=== PATIENT | male | born 1980 | race Caucasian/White ===

== ENCOUNTER 2017-08-29 19:06 | Inpatient (IN) | payer BC, OTHER ==
[~2017-08-29] VITALS: Ht 190.5 cm; Wt 81.6 kg
[2017-08-29] MEDS ORDERED: ACETAMINOPHEN 325 MG TABLET PO PRN (19:45)
[2017-08-29] MEDS ORDERED: LORAZEPAM 2 MG/1 ML VIAL IM PRN (19:45)
[2017-08-29] MEDS ORDERED: MAG HYDROX/AL HYDROX/SIMETH 30 ML LIQUID UDC PO PRN (19:45)
[2017-08-29] MEDS ORDERED: ONDANSETRON ODT 4 MG TAB.RAPDIS SL PRN (19:45)
[2017-08-29] MEDS ORDERED: IBUPROFEN 400 MG TABLET PO PRN (19:45)
[2017-08-29] MEDS ORDERED: LORAZEPAM 1 MG TABLET PO PRN ×2 (19:45)
[2017-08-29] MEDS ORDERED: ONDANSETRON 4 MG/2 ML VIAL IM PRN (19:45)
[2017-08-29] MEDS ORDERED: DICYCLOMINE HCL 20 MG TABLET PO PRN (19:45)
[2017-08-29] MEDS ORDERED: MIRALAX 17 GM POWD.PACK PO PRN (19:45)
[2017-08-29] MEDS ORDERED: MAGNESIUM HYDROXIDE 30 ML LIQUID UDC PO PRN (19:45)
[2017-08-29] MEDS ORDERED: LOPERAMIDE HCL 2 MG CAPSULE PO PRN ×2 (19:45)
[2017-08-29 20:23] LABS: ETHANOL < 3 MG/DL (0-0)
[2017-08-29 20:28] LABS: *AMPHETAMINE, URINE POSITIVE (NEGATIVE); *BARBITURATE, URINE NEGATIVE (NEGATIVE); *CANNABINOID, URINE NEGATIVE (NEGATIVE); *COCCAINE, URINE NEGATIVE (NEGATIVE); *OPIATE, URINE NEGATIVE (NEGATIVE); *PHENCYCLIDINE SCREEN,URINE NEGATIVE (NEGATIVE)
[2017-08-29 20:30] LABS: ALANINE AMINOTRANSFERASE 27 U/L (16-63); ALKALINE PHOSPHATASE 57 U/L (50-136); ASPARTATE AMINOTRANSFERASE 15 U/L (15-37); BASOPHILS # (AUTO) 0.1 K/uL (0.0-8.0); BASOPHILS % (AUTO) 0.9 % (0.0-2.0); BILIRUBIN,TOTAL 0.4 mg/dL (0.2-1.0); CARBON DIOXIDE 28 mmol/L (21-32); CHLORIDE 105 mmol/L (98-107); CREATININE 1.1 mg/dL (0.6-1.3); EOSINOPHILS # (AUTO) 0.1 K/uL (0.0-0.7); EOSINOPHILS % (AUTO) 1.9 % (0.0-7.0); GLUCOSE 85 mg/dL (74-106); HEMATOCRIT 47.3 % (36.7-47.1); HEMOGLOBIN 16.6 g/dL (12.5-16.3); LYMPHOCYTES # (AUTO) 2.6 K/uL (20.0-40.0); LYMPHOCYTES % (AUTO) 39.7 % (20.5-51.5); MAGNESIUM 2.2 mg/dL (1.8-2.4); MEAN CORPUSCULAR HEMOGLOBIN 31.1 uug (23.8-33.4); MEAN CORPUSCULAR HGB CONC 35 g/dL (32.5-36.3); MEAN CORPUSCULAR VOLUME 88.3 fL (73.0-96.2); MONOCYTES # (AUTO) 0.5 K/uL (2.0-10.0); MONOCYTES % (AUTO) 8.3 % (0.0-11.0); NEUTROPHILS # (AUTO) 3.2 K/uL (1.8-8.9); NEUTROPHILS % (AUTO) 49.2 % (38.5-71.5); PLATELET COUNT (AUTO) 302 K/uL (152-348); POTASSIUM 3.8 mmol/L (3.5-5.1); RED BLOOD CELL COUNT(AUTO) 5.36 MIL/uL (4.06-5.63); TOTAL PROTEIN, SERUM 7.9 g/dL (6.4-8.2); UREA NITROGEN, BLOOD 22 mg/dL (7-18); WHITE BLOOD COUNT (AUTO) 6.5 K/uL (3.6-10.2)
[2017-08-29] MEDS ORDERED: LORAZEPAM 1 MG TABLET PO SCH (21:00)
[2017-08-29 21:45] VITALS: BP 141/88
[2017-08-30] VITALS: BP 118/68
[2017-08-30] MEDS ORDERED: EMTR1TAB6 PO (02:59)
[2017-08-30] MEDS ORDERED: ASPI-1165 PO (02:59)
[2017-08-30 08:00] VITALS: BP 97/61
[2017-08-30] MEDS: GABAPENTIN 300 MG CAPSULE PO SCH ×2 (08:20→20:18)
[2017-08-30] MEDS ORDERED: TUBERCULIN,PURIF.PROT.DERIV. 5 TU/0.1 ML TEST ID ONE (09:00)
[2017-08-30 12:00] VITALS: BP 108/53
[2017-08-30] MEDS: TRUVADA PO SCH (14:01)
[2017-08-30] MEDS ORDERED: LORAZEPAM 1 MG TABLET PO SCH ×2 (15:00→21:00)
[2017-08-30] MEDS ORDERED: HYDROXYZINE PAMOATE 25 MG CAPSULE PO PRN (15:00)
[2017-08-30 16:00] VITALS: BP 101/60
[2017-08-30 20:00] VITALS: BP 102/72
[2017-08-31] VITALS (7 sets, daily range): BP systolic 125–137; BP diastolic 73–98
[2017-08-31 08:06] LABS: HEPATITIS B SURFACE AG Negative (Negative)
[2017-08-31] MEDS: TRUVADA PO SCH (08:43)
[2017-08-31] MEDS: GABAPENTIN 300 MG CAPSULE PO SCH ×2 (08:43→20:06)
[2017-08-31] MEDS ORDERED: LORAZEPAM 1 MG TABLET PO SCH ×2 (09:00→21:00)
[2017-08-31] MEDS ORDERED: CLON0.1T14 PO (12:03)
[2017-08-31] MEDS ORDERED: DIPH50CA37 PO (12:03)
[2017-08-31] MEDS ORDERED: GABA-534 PO (12:03)
[2017-08-31] MEDS ORDERED: HYDR-3895 PO (12:03)
[2017-08-31] MEDS: diphenhydrAMINE 50 MG CAPSULE PO PRN (20:06)
[2017-08-31] MEDS: CLONIDINE HCL 0.1 MG TABLET PO PRN (20:06)
[2017-09-01] VITALS (7 sets, daily range): BP systolic 119–156; BP diastolic 75–91
[2017-09-01] MEDS: GABAPENTIN 300 MG CAPSULE PO SCH ×2 (08:31→20:44)
[2017-09-01] MEDS: TRUVADA PO SCH (08:31)
[2017-09-01] MEDS ORDERED: LORAZEPAM 1 MG TABLET PO SCH (09:00)
[2017-09-01] MEDS: CLONIDINE HCL 0.1 MG TABLET PO PRN (20:44)
[2017-09-01] MEDS: diphenhydrAMINE 50 MG CAPSULE PO PRN (20:44)
[2017-09-02] VITALS: BP 132/76
[2017-09-02] MEDS ORDERED: diphenhydrAMINE 50 MG CAPSULE PO ONE
[2017-09-02 08:06] VITALS: BP 136/82
[2017-09-02] MEDS: GABAPENTIN 300 MG CAPSULE PO SCH (08:22)
[2017-09-02] MEDS: TRUVADA PO SCH (08:22)
== END 2017-09-02 09:33 | disposition other institution (70) | DRG 895 ==
LOC: SRC 19:06
PROVIDERS: ADMIT Internal Medicine; ATTEND Internal Medicine
PROC: HZ2ZZZZ Detoxification Services for Substance Abuse Treatment (ICD-10-PCS; principal; 2017-08-29)
PROC: HZ31ZZZ Individual Counseling for Substance Abuse Treatment, Behavioral (ICD-10-PCS; 2017-08-31)
PROC: HZ41ZZZ Group Counseling for Substance Abuse Treatment, Behavioral (ICD-10-PCS; 2017-08-31)
DX: F15.23 Other stimulant dependence with withdrawal (principal); I15.9 Secondary hypertension, unspecified; E86.0 Dehydration; F13.239 Sedative, hypnotic or anxiolytic dependence with withdrawal, unspecified; F41.9 Anxiety disorder, unspecified; Z81.1 Family history of alcohol abuse and dependence; Z81.8 Family history of other mental and behavioral disorders; Z91.89 Other specified personal risk factors, not elsewhere classified; Z72.52 High risk homosexual behavior
CPT/HCPCS: 36415; 70030-TC; 80307; 80324; 80345; 83735; 85025; 86580; 86592; 86705; 86803; 87340; 87806; G0480; Q0163

== ENCOUNTER 2017-12-24 16:33 | Inpatient (IN) | payer BC, OTHER ==
[~2017-12-24] VITALS: Ht 190.5 cm; Wt 86.2 kg
[~2017-12-24 16:33] MED LIST: ASPI-1165 PO; CLON0.1T14 PO; DIPH50CA37 PO; EMTR1TAB6 PO; GABA-534 PO; HYDR-3895 PO
--- NOTE | 2017-12-24 17:00 | NUR ---
Pre-admission assessment Pt 37 y/o male admitted for medically supervised withdrawal of meth. Pt reports NKA and Full Code. Pt has history of withdrawal induced seizures (2006 and other dates unknown), withdrawal induced delirium (2006), and accidental intoxication induced overdoses X 3 in his early 20s. Pt denies suicidal ideations and suicidal attempts. He has never been admitted involuntary to a psychiatric facility. Vitals: 134/82, HR 76, Resp 18, T- 98.2, O2 sat 97% on room air. Height 63, weight 190# A&OX4, respirations even and unlabored. Denies c/o pain, c/o nerve agitation over his body. Pt presents unshaven, restless, twitching, avoids eye contact, pressured speech, c/o thirst, anxious and jumpy. Pt has euphoric mood. Pt cooperative and friendly. Pt reports feeling high ant not experiencing withdrawal symptoms. Past meth withdrawal symptoms include jumpy, anxious, hunger, tired, sleeping a lot and thirsty.
[2017-12-24 17:24] VITALS: BP 134/82
--- NOTE | 2017-12-24 17:24 | NUR ---
Admission Note Pt 37 y/o male admitted for medically supervised withdrawal of meth. Pt reports NKA and Full Code. Pt has history of withdrawal induced seizures (2006 and other dates unknown), withdrawal induced delirium (2006), and accidental intoxication induced overdoses X 3 in his early 20s. Pt denies suicidal ideations and suicidal attempts. He has never been admitted involuntary to a psychiatric facility. Pt has been using Meth $40 worth over 3 days since March 2017. Pt snorts and smokes meth. He was last sober one week ago. Pt last used meth today 12/24/17 at 0200. His longest time sober was 9 years. He started using meth at 12-13 years old. He was last admitted for detox in August 2017, here at [facility]. In the past Pt has used Xanax, ketamine, and GHB. Pt denies tobacco use. Vitals: 134/82, HR 76, Resp 18, T- 98.2, O2 sat 97% on room air. Height 63, weight 190#. Skin intact. A&OX4, respirations even and unlabored. Denies c/o pain, c/o nerve agitation over his body. Pt presents unshaven, restless, twitching, avoids eye contact, pressured speech, c/o thirst, anxious and jumpy. Pt has euphoric mood. Pt cooperative and friendly. Pt reports feeling high ant not experiencing withdrawal symptoms. Past meth withdrawal symptoms include jumpy, anxious, hunger, tired, sleeping a lot and thirsty. Pt reports past medical history of anxiety. Daily medications include Truvada. Pt denies history of HIV, HEP C. Pt states he is seeking treatment today because I need to quit using. Pt states I think I use because of PTSD family issues. He wants to get sober to be present with his partner and in life. Pt thinks a trigger is seeing his biological father. The consequences of continueusing meth are his partner will leave him. His partner gave him an ultimatum. Pt feels he can stay sober this time because he has better knowledge of triggers and how to cope. His meth use has impaired work productivity and negatively impacting his physical and mental health. Educated patient about plan of care including detox regimen, group therapy, individual therapy, and discharge planning. Encouraged Pt to be open and honest, verbalize support for Pt in his recovery.
[2017-12-24] MEDS ORDERED: ACETAMINOPHEN 325 MG TABLET PO PRN (17:45)
[2017-12-24] MEDS ORDERED: MIRALAX 17 GM POWD.PACK PO PRN (17:45)
[2017-12-24] MEDS ORDERED: IBUPROFEN 600 MG TABLET PO PRN (17:45)
[2017-12-24] MEDS ORDERED: ONDANSETRON ODT 4 MG TAB.RAPDIS SL PRN (17:45)
[2017-12-24] MEDS ORDERED: ONDANSETRON 4 MG/2 ML VIAL IM PRN (17:45)
[2017-12-24] MEDS ORDERED: LOPERAMIDE HCL 2 MG CAPSULE PO PRN ×2 (17:45)
[2017-12-24] MEDS ORDERED: THIAMINE HCL 200 MG/2 ML VIAL IM ONE (17:45)
[2017-12-24] MEDS ORDERED: MAGNESIUM HYDROXIDE 30 ML LIQUID UDC PO PRN (17:45)
[2017-12-24] MEDS ORDERED: MAG HYDROX/AL HYDROX/SIMETH 30 ML LIQUID UDC PO PRN (17:45)
[2017-12-24] MEDS ORDERED: diphenhydrAMINE 50 MG CAPSULE PO PRN (17:45)
[2017-12-24 18:05] LABS: *AMPHETAMINE, URINE POSITIVE (NEGATIVE); *BARBITURATE, URINE NEGATIVE (NEGATIVE); *CANNABINOID, URINE NEGATIVE (NEGATIVE); *COCCAINE, URINE NEGATIVE (NEGATIVE); *OPIATE, URINE NEGATIVE (NEGATIVE); *PHENCYCLIDINE SCREEN,URINE NEGATIVE (NEGATIVE)
[2017-12-24 18:31] LABS: BASOPHILS # (AUTO) 0.1 K/uL (0.0-8.0); BASOPHILS % (AUTO) 1.1 % (0.0-2.0); EOSINOPHILS # (AUTO) 0.2 K/uL (0.0-0.7); EOSINOPHILS % (AUTO) 2.7 % (0.0-7.0); HEMATOCRIT 43.8 % (36.7-47.1); LYMPHOCYTES # (AUTO) 2.1 K/uL (20.0-40.0); LYMPHOCYTES % (AUTO) 35.6 % (20.5-51.5); MEAN CORPUSCULAR HEMOGLOBIN 30.4 uug (23.8-33.4); MEAN CORPUSCULAR HGB CONC 34 g/dL (32.5-36.3); MEAN CORPUSCULAR VOLUME 88.6 fL (73.0-96.2); MONOCYTES # (AUTO) 0.5 K/uL (2.0-10.0); MONOCYTES % (AUTO) 9.4 % (0.0-11.0); NEUTROPHILS % (AUTO) 51.2 % (38.5-71.5); PLATELET COUNT (AUTO) 264 K/uL (152-348); RED BLOOD CELL COUNT(AUTO) 4.94 MIL/uL (4.06-5.63); WHITE BLOOD COUNT (AUTO) 5.8 K/uL (3.6-10.2)
--- NOTE | 2017-12-24 18:38 | NUR ---
End of Shift Pt A&O X4, resp even and unlabored. Pt ate 100% dinner. Cooperative and friendly. No changes since admission note. CIWA 9. Per MD order CIWA Q4 hours for 24 hours. Pt reports NKA. FULL CODE. All safety precautions in place. Pt on fall and seizure precautions. Call light within reach. Bed lowest lock position. Will continue to monitor for withdrawal symptoms. Will endorse to PM shift.
[2017-12-24 18:51] LABS: ALANINE AMINOTRANSFERASE 41 U/L (16-63); ALKALINE PHOSPHATASE 49 U/L (50-136); ASPARTATE AMINOTRANSFERASE 29 U/L (15-37); BILIRUBIN,TOTAL 0.4 mg/dL (0.2-1.0); CARBON DIOXIDE 22 mmol/L (21-32); CHLORIDE 106 mmol/L (98-107); CREATININE 0.9 mg/dL (0.6-1.3); GLUCOSE 111 mg/dL (74-106); MAGNESIUM 2.3 mg/dL (1.8-2.4); POTASSIUM 3.7 mmol/L (3.5-5.1); TOTAL PROTEIN, SERUM 6.7 g/dL (6.4-8.2); UREA NITROGEN, BLOOD 19 mg/dL (7-18)
[2017-12-24 18:59] LABS: ETHANOL < 3 MG/DL (0-0)
[2017-12-24 20:00] VITALS: BP 126/77
--- NOTE | 2017-12-24 20:00 | NUR ---
Start of Shift Note Received a 37 y/o male px, admitted for medically supervised withdrawal from Methamphetamine. Px is on PRN medications. Last CIWA reported by AM shift nurse was 9. During the shift at 1999, px is awake on bed in left side lying position. Px appears unshaven, and anxious. Px stated My anxiety is low. I dont have any aches or pains. No complaints made at the moment. Px was told to use the call light if he needs anything. Bed on lowest position, side rails up 2x, and call light within reach. We'll continue to monitor.
--- NOTE | 2017-12-24 20:00 | NUR ---
DEXTERWA 5 Px stated that his anxiety is minimal. hand tremors not observed. No agitation observed. No complaints made.
[2017-12-25] VITALS: BP 121/74
--- NOTE | 2017-12-25 | NUR ---
CIWA deferred CIWA deferred due to the px is asleep, to assess if the px is awake per doctor's order. We'll continue to monitor.
[2017-12-25 04:00] VITALS: BP 123/76
--- NOTE | 2017-12-25 04:00 | NUR ---
CIWA deferred CIWA deferred due to the px is asleep, to assess if the px is awake per doctor's order. We'll continue to monitor.
--- NOTE | 2017-12-25 07:05 | NUR ---
End of Shift Note During the shift, px slept most of the time. No complaints made. No PRN medications given. Px oral intake is 500 ml, voided 1x, with No BM. Px slept for 10 hours. At 0630, px is asleep on bed in right side lying position. Last CIWA 5. Bed on lowest position, side rails up 2x, and call light within reach. Well continue to monitor. Px endorsed to AM shift nurse.
--- NOTE | 2017-12-25 07:30 | NUR ---
START OF SHIFT NOTE Received report from night nurse 37 year old male admitted for ETOH withdrawal and patient currently not on any taper but PRN'S is available for increased s/s of withdrawal. Per endorsement patient did not receive any PRN medications, last CIWA 5, slept for 10 hours. Received patient alert awake oriented x4 denies any pain. Breathing normal no SOB noted. Skin intact warm and dry to touch. All safety measures in place,call light within reach. Will continues to monitor. Addendum: 12/26/17 at 0800 by JUAN PETERSON [facility]- Patient admitted for METH withdrawal.
[2017-12-25 08:00] VITALS: BP 129/84
--- NOTE | 2017-12-25 08:00 | NUR ---
CIWA ASSESSMENT Patient is alert oriented x4, labile facial expressions and continues to exhibit s/s of withdrawal such as anxiety, agitation, restless, skin is smooth, Sweats, CIWA score -4. Will cont to monitor.
[2017-12-25] MEDS ORDERED: TUBERCULIN,PURIF.PROT.DERIV. 5 TU/0.1 ML TEST ID ONE (09:00)
[2017-12-25] MEDS: MULTIVITAMINS,THERAPEUTIC TABLET PO SCH (09:01)
[2017-12-25] MEDS: FOLIC ACID 1 MG TABLET PO SCH (09:01)
[2017-12-25] MEDS: THIAMINE HCL 100 MG TABLET PO SCH (09:01)
[2017-12-25 12:00] VITALS: BP 103/79
--- NOTE | 2017-12-25 12:00 | NUR ---
CIWA ASSESSMENT Patient is alert oriented, still sounded sleepy, sad facial expression, anhedonia, and continues to exhibit s/s of withdrawal such as anxiety, agitation, restless, skin is smooth,sweats. CIWA score -5. Will cont to monitor.
[2017-12-25] MEDS ORDERED: EMTRICITABINE/TENOFOVIR TABLET PO SCH (13:15)
[2017-12-25] MEDS ORDERED: HYDROXYZINE PAMOATE 25 MG CAPSULE PO PRN (13:15)
[2017-12-25] MEDS ORDERED: diphenhydrAMINE 50 MG CAPSULE PO PRN (13:15)
[2017-12-25 16:00] VITALS: BP 133/63
--- NOTE | 2017-12-25 16:00 | NUR ---
CIWA ASSESSMENT Patient reports feeling anxious, agitated, fatigue, hand tremors, CIWA score -4, Will cont to monitor.
[2017-12-25] MEDS: PATIENT MAY USE OWN MED- MD OK PO SCH (16:30)
--- NOTE | 2017-12-25 16:45 | NUR ---
Client was prompted to attend twice daily group counseling sessions.
--- NOTE | 2017-12-25 19:08 | NUR ---
END OF SHIFT NOTE Gave report to night nurse 37 year old male admitted for Meth withdrawal. Patient currently not on any taper but PRN'S is available for s/s of withdrawal. Patient presented with anxiety, agitation, restless and fatigue. During shift patient received scheduled medications and PPD was given on LFA no s/s of bleeding no swelling noted. Patient reports feeling tired and wants to sleep, but patient also noted attending groups activities. Most recent CIWA score noted 4. Patient is compliant with medications and treatment plan. All safety measures in place, call light within reach. Patient endorse to night nurse in stable condition.
--- NOTE | 2017-12-25 19:08 | NUR ---
START OF SHIFT NOTE: The patient is a 37 year old male admitted for Methamphetamine withdrawal. The patient is on ordered PRN Medications. The patient is alert and oriented x4, ambulatory, with stable gait. The patient is cooperative,has clear speech. The patient reports NKA, Regular Diet, Seizures and Fall Precautions. Past Medical History: Anxiety, Depression, History of Benzodiazepines (Xanax), Ketamine, and GHB abuse, History of withdrawal-induced seizures(2006), withdrawal-induced delirium (2006), accidental intoxications induced OD x3 in his 20s. The patient appears sad, worried,with labile affect and anxious mood. Emotional support and reassuring provided. The patient encouraged to express his feelings. The most recent CIWA=4 at 1600: During day shift patient c/o anxiety, agitation, irritability, restlessness, fatigue, nervousness, and sweating. No PRN Medications administrated during day shift. The patient remains compliant with treatment, medications, and diet regime. Encouraged to fluids intake as tolerated. Encouraged to attend group activities. Safe and calm environment with minimized noises was provided. All needs met. Safety measures: Call light within reach, bed is locked in lowest position, and padded bed rails up bilaterally. The patient endorsed by outgoing day shift nurse. Will continue to monitor closely.
[2017-12-25 20:00] VITALS: BP 123/76
[2017-12-26] VITALS: BP 119/64
--- NOTE | 2017-12-26 04:00 | NUR ---
VS REFUSED, CIWA DEFERRED VS refused, CIWA deferred at 0400 due to patient sleeping; to be assessed and scored while patient is awake. Respirations are even and unlabored. RR: 16. Safe and calm environment provided. All needs met. Safety measures in place: Call light within reach, bed locked in lowest position, and padded bed rails up bilaterally. Will continue to monitor closely.
--- NOTE | 2017-12-26 07:20 | NUR ---
END OF SHIFT Presented patient is a 37 year old male admitted for Methamphetamine withdrawal, is on PRN Medications. The patient is alert and oriented x4, ambulatory, with stable gate. The patient is cooperative, with soft and clear speech. The patient noted with flat affect and labile mood. Educated to use of Relaxation Techniques: deep breathing exercises, guided imagery, and visualization. Encouraged verbalization of feelings, fears, and anxiety. Emotional support and reassurance provided to patient. The patient noted disheveled, unshaven, unkempt with uncombed hair. Encouraged to independently perform hygiene care. CIWA=9 at 2000, CIWA=7 at 0000. During my shift the patient presented with anxiety, agitation, nervousness, irritability, sweating, restlessness, and fatigue. Withdrawal symptoms will be closely monitored. VS refused, CIWA deferred at 0400 due to patient sleeping; to be assessed and scored while patient is awake. RR:16. Respirations are even and unlabored. No PRN Medications administrated during my shift. No S/S of distress noted during my shift. Respirations are unlabored and even. Skin is intact, warm and dry to touch. Safe and calm environment with minimized noises was provided. Encouraged to increase oral fluid intake as tolerated. Patient scheduled for discharging today. Patient slept for 10 hours, intake 1,000 ml, voided x1. All needs met. Safety measures: Call light within reach, bed in the lowest position and locked, and padded bed rails up x2. Patient endorsed to day shift nurse.
--- NOTE | 2017-12-26 07:58 | NUR ---
START OF SHIFT NOTE Received report from night nurse 37 year old male admitted for Meth withdrawal and patient currently not on any taper but PRN'S is available for increased s/s of withdrawal. Per endorsement patient did not receive any PRN medications, last CIWA 7, slept for 10 hours. Received patient asleep, responsive to verbal and tactile stimuli. Breathing normal no SOB noted. Skin intact warm and dry to touch. All safety measures in place, call light within reach. Will continues to monitor.
[2017-12-26 08:00] VITALS: BP 128/89
--- NOTE | 2017-12-26 08:00 | NUR ---
CIWA ASSESSMENT Patient is alert oriented x4, continues to exhibit s/s of withdrawal such as bilateral hand tremors, sweats, anxiety, agitation, CIWA score noted-6, Will cont to monitor.
[2017-12-26] MEDS: FOLIC ACID 1 MG TABLET PO SCH (08:27)
[2017-12-26] MEDS: THIAMINE HCL 100 MG TABLET PO SCH (08:27)
[2017-12-26] MEDS: PATIENT MAY USE OWN MED- MD OK PO SCH (08:27)
[2017-12-26] MEDS: MULTIVITAMINS,THERAPEUTIC TABLET PO SCH (08:27)
[2017-12-26 12:00] VITALS: BP 135/88
--- NOTE | 2017-12-26 12:00 | NUR ---
CIWA ASSESSMENT Patient returned from groups and continues to exhibit s/s of withdrawal such as bilateral hand tremors, sweats, anxiety, agitation, CIWA score noted-5, Will cont to monitor.
--- NOTE | 2017-12-26 13:11 | NUR ---
Client was prompted to attend daily group counseling sessions.
[2017-12-26 16:00] VITALS: BP 139/89
--- NOTE | 2017-12-26 16:00 | NUR ---
CIWA ASSESSMENT Patient is alert oriented x4, and reported anxiety, agitation, bilateral hand tremors, sweats decreased, CIWA score noted-4, Will cont to monitor.
--- NOTE | 2017-12-26 19:14 | NUR ---
END OF SHIFT NOTE Gave report to night nurse 37 year old male admitted for Meth withdrawal. Patient currently not on any taper but PRN'S is available for s/s of withdrawal. Patient presented with anxiety, agitation, restless and fatigue. During shift patient received scheduled medications. Encourage patient to attend groups activities to learn new coping skills. Patient set for discharge in AM. Most recent CIWA score noted 4. Patient is compliant with medications and treatment plan. All safety measures in place, call light within reach. Patient endorse to night nurse in stable condition.
--- NOTE | 2017-12-26 19:15 | NUR ---
Start of Shift Note: Patient is a 37 y.o male admitted for medically supervised withdrawal from Meth use. Patient is under close observation. Patient remains alert & oriented x4. He presents with anxiety & agitation. No complaints of pain/discomfort. Denies hallucinations. Respiration even & unlabored. Abdomen soft & non-distended. Pt currently has no taper and is scheduled to be discharged tomorrow to [facility]. Pt verbalized readiness to be discharge.Last CIWA is 4. No PRN medications given during day shift. Pt encourage to increase fluid intake for hydration. Educated pt of current plan of care for the night and medication regimen. Safety measures in place. Will continue to monitor patient.
[2017-12-26 20:30] VITALS: BP 145/102
[2017-12-26] MEDS ORDERED: CLONIDINE HCL 0.1 MG TABLET PO PRN (21:15)
--- NOTE | 2017-12-26 21:23 | NUR ---
PRN Clonidine Patient noted with B/P of 145/102 [place] 86. PRN Clonidine administered as ordered. Will rechecked BP in 1 hour.
--- NOTE | 2017-12-26 22:23 | NUR ---
PRN Reassessment B/P of 136/74, [place] 82 noted at this time. Pt in bed watching TV. Pt appears comfortable with no complaints of discomfort noted at this time. Will continue to monitor patient.
[2017-12-26 22:30] VITALS: BP 136/74
--- NOTE | 2017-12-27 | NUR ---
Vitals/CIWA deferred Patient refused vitals at this time. Pt in bed with eyes close. Respiration even & unlabored. Unable to assess CIWA at this time d/t pt asleep and will reassess when awake. Safety measures in place. Will continue to monitor patient.
--- NOTE | 2017-12-27 04:00 | NUR ---
Vitals/CIWA deferred Patient refused vitals at this time. Pt in bed and appears comfortable Respiration even & unlabored. Unable to assess CIWA at this time d/t pt asleep and to be assessed when pt is awake. Safety measures in place. Will continue to monitor patient.
--- NOTE | 2017-12-27 06:58 | NUR ---
End of Shift Note: Continue to closely monitor patient. Patient remains alert & oriented x4. During my shift, he presented anxiety, agitation and increased BP. He received PRN Clonidine for anxiety & increased BP and was effective. Pt currently has no ongoing taper and he is scheduled to be discharge today to [facility]. Last CIWA noted is 4. Patient remains stable and Vitals noted WNL. He slept for a total of 7 hours. Fluid intake 1355 ml, Voided 2x with no bowel movement. All needs attended. Safety measures in place. Will endorse pt to day shift nurse.
--- NOTE | 2017-12-27 07:40 | NUR ---
START OF SHIFT NOTE Received report from night nurse 37 year old male admitted for Meth withdrawal and patient currently not on any taper but PRN'S is available for increased s/s of withdrawal. Per endorsement patient received PRN Clonidine effective per night nurse, last CIWA 4, slept for 7 hours. Received patient alert, awake oriented. Breathing normal no SOB noted. Skin intact warm and dry to touch. Patient set for discharge today. All safety measures in place, call light within reach. Will continues to monitor.
[2017-12-27 08:00] VITALS: BP 119/85
[2017-12-27 08:10] LABS: HEPATITIS B SURFACE AG Negative (Negative)
[2017-12-27] MEDS: THIAMINE HCL 100 MG TABLET PO SCH (08:16)
[2017-12-27] MEDS: MULTIVITAMINS,THERAPEUTIC TABLET PO SCH (08:16)
[2017-12-27] MEDS: FOLIC ACID 1 MG TABLET PO SCH (08:16)
[2017-12-27] MEDS: PATIENT MAY USE OWN MED- MD OK PO SCH (08:41)
--- NOTE | 2017-12-27 09:40 | NUR ---
DISCHARGE NOTE Patient admitted for Meth withdrawal. Patient denies any SI/HI. Vital signs WNL. All discharge paper work completed signed and dated. Patient discharge to [facility] in stable condition on 12/27/17 at 0940. All belongings returned to the patient including medications and prescriptions.
== END 2017-12-27 09:40 | disposition other institution (70) | DRG 895 ==
LOC: SRC 16:33
PROVIDERS: ADMIT Family Medicine Addiction Medicine; ATTEND Family Medicine Addiction Medicine
PROC: HZ41ZZZ Group Counseling for Substance Abuse Treatment, Behavioral (ICD-10-PCS; principal; 2017-12-24)
PROC: HZ2ZZZZ Detoxification Services for Substance Abuse Treatment (ICD-10-PCS; 2017-12-25)
DX: F15.23 Other stimulant dependence with withdrawal (principal); F13.229 Sedative, hypnotic or anxiolytic dependence with intoxication, unspecified; Z91.89 Other specified personal risk factors, not elsewhere classified; F41.9 Anxiety disorder, unspecified; Z72.52 High risk homosexual behavior; Z81.1 Family history of alcohol abuse and dependence; Z81.8 Family history of other mental and behavioral disorders
CPT/HCPCS: 36415; 70030-TC; 80307; 80324; 83735; 85025; 86580; 86592; 86705; 86803; 87340; 87806; A4663; G0480